=== PATIENT | male | born 1955 ===

== ENCOUNTER 2020-02-13 12:29 | Inpatient (IN) | payer BC ==
[2020-02-13] MEDS ORDERED: ASPIRIN 81 MG ONE (12:55)
[2020-02-13] MEDS ORDERED: IV FLUID CONTINUATION 1,000 ML IV ONE (13:15)
[2020-02-13] MEDS ORDERED: VERAPAMIL 2.5 MG/ML 2 ML AMP ONE (13:35)
[2020-02-13] MEDS: VERAPAMIL SYRINGE (5 MG/10 ML) INTRAARTER ONE ×3 (13:37→14:09)
[2020-02-13] MEDS ORDERED: BIVALIRUDIN BOLUS 250 MG/50 ML IV ONE (13:39)
[2020-02-13] MEDS ORDERED: BIVALIRUDIN 250 MG in SODIUM CHLORIDE 0.9% 50 ML IV ONE (13:40)
[2020-02-13] MEDS ORDERED: MIDAZOLAM 2 MG/2 ML VIAL IVP ONE (13:42)
[2020-02-13] MEDS ORDERED: CLOPIDOGREL 75 MG TAB ONE (13:45)
[2020-02-13] MEDS ORDERED: NITROGLYCERIN 1000MCG/10ML SYRINGE INTRACORON ONE ×2 (13:58→14:03)
[2020-02-13] MEDS ORDERED: MAG HYDROX/AL HYDROX/SIMETH 30 ML CUP PO PRN (14:10)
[2020-02-13] MEDS ORDERED: ZOLPIDEM 5 MG TAB PO PRN (14:10)
[2020-02-13] MEDS ORDERED: NITROGLYCERIN SL TABS 0.4 MG TAB SUBLINGUAL PRN (14:10)
[2020-02-13] MEDS ORDERED: ATROPINE SULFATE 0.1 MG/ML 10ML SYRINGE IV PRN (14:10)
[2020-02-13] MEDS ORDERED: RX INFO: IV CONTRAST WAS GIVEN 1 EACH MISC MISCELLANE PRN (14:10)
[2020-02-13] MEDS ORDERED: ASPIRIN 81 MG PO ONE (14:12)
[2020-02-13] MEDS ORDERED: CLOPIDOGREL 75 MG TAB PO ONE (14:12)
[2020-02-13] MEDS ORDERED: IOPAMIDOL-370 125ML BTL INJ ONE (14:12)
[2020-02-13] MEDS ORDERED: SODIUM CHLORIDE 0.9% 1,000 ML IV SCH (14:15)
--- NOTE | 2020-02-13 14:49 | PTCA ---
PERCUTANEOUSTRANS CORORONARY ANGIOGRAPHY DATE OF SERVICE: February 13, 2020. PERFORMING PHYSICIAN: Crescencio Gupta MD. PROCEDURE PERFORMED: Successful stenting of the distal right coronary artery using 3.0 x 15 mm and 3.0 x 15 mm Xience JOSE with an excellent angiographic result and reduction of stenosis from 99% to 0%. INDICATION: This is a 64-year-old gentleman with history of coronary artery disease and prior triple-vessel stenting who was admitted to [facility] with chest discomfort and ruled in for acute [id number] myocardial infarction. He underwent a heart catheterization over there and that revealed critical disease involving the distal right coronary artery. He was brought to undergo an intervention on the right coronary artery. APPROACH: Right radial artery. COMPLICATION: None. LEVEL OF SEDATION: Moderate with sedation length of 43 minutes. PROCEDURE DESCRIPTION: Please refer to diagnostic heart catheterization that was performed at [facility]. Anticoagulation was initiated using Angiomax. Subsequently, I did engage the right coronary artery using JR4 guide. I did wire it using a Whisper J wire. After that I did PTCA ballooning using 2.5 x 12 mm balloon and when I tried to deploy 3.0 x 15 mm Xience, the patient took a deep breath and the stent deployed proximal to the lesion where it is supposed to be deployed. I was able to deploy the stent at the right lesion using another 3.0 x 15 mm stent while the second stent was deployed under fluoroscopy guidance. After that, I post dilated to the 2 stents using 3.5 x 12 mm NC balloon. The final angiogram showed excellent angiographic results and the procedure was completed without any complication. POSTPROCEDURE MANAGEMENT: 1. Dual anti-platelet therapy. 2. Risk factor modifications. 3. Follow up with the patient. MMODL / IJN: [id number] /
[2020-02-13 17:40] LABS: Glucose,Whole Blood 183 mg/dL (75-99)
[2020-02-13] MEDS: ATORVASTATIN 80 MG TAB PO SCH (20:06)
[2020-02-13 20:43] LABS: Glucose,Whole Blood 329 mg/dL (75-99)
--- NOTE | 2020-02-13 21:57 | P.HPIM ---
History of Present Illness H&P Date: 02/13/20 Chief Complaint: Chest pain History of presenting complaint: This is a 64-year-old patient of Dr. goss. Known history of coronary artery disease with stent, hypertension and asthma. 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 Chelo alfaro and had been complaining of chest pressure. Patient has a strong [place] accent , not able to express himself clearly. Is having chest pressure off and on for 2 days. Some radiation to the left arm. Apparently some shortness of breath. Has not really related to exertion it seems. He was sent down to the ER. Patient ruled in for acute non-Q-wave myocardial infarction at [facility]. Underwent a cardiac terence terization. Found to have critical right coronary artery stenosis and he was transferred here. Successful angioplasty stenting was done by Dr. Gupta. Currently resting in bed. With no cardiac symptoms. Review of systems: GEN.: None EYES: None HEENT: None NECK: None RESPIRATORY: As above CARDIOVASCULAR: As above GASTROINTESTINAL: None GENITOURINARY: None MUSCULOSKELETAL: None LYMPHATICS: None HEMATOLOGICAL: None PSYCHIATRY: None NEUROLOGICAL: None Past medical history to include:: Coronary artery disease with stent, hypertension Social history: Patient makes headline is, lives with his family. Denies any smoking or alcohol. Physical examination: VITAL SIGNS: 98.4, 75, 16, 149/74, 98% room air GENERAL: BMI 26.1, sitting up, comfortable. EYES: Pupils equal. Conjunctiva normal. HEENT: External appearance of nose and ears normal, oral cavity grossly normal. NECK: JVD not raised; masses not palpable. HEART: First and second heart sounds are normal; no edema. LUNGS: Respiratory rate normal; clear to auscultation. ABDOMEN: Soft, nontender, liver spleen not palpable, no masses palpable. PSYCH: Alert and oriented x3; mood and affect normal. NEUROLOGICAL: Cranial nerves grossly intact; no facial asymmetry, power and sensation grossly intact. LYMPHATICS: No lymph nodes palpable in the axilla and neck INVESTIGATIONS, reviewed in the clinical context: Accu-Cheks 183, 329 Assessment: -Acute non-Q-wave myocardial infarction -Cardiac catheterization with intervention to the RCA -essential hypertension -Moderate persistent asthma -Hyperglycemia, check for diabetes mellitus type 2 Plan: Patient currently in aspirin, Lipitor, Plavix, Zestril. We'll follow Accu-Cheks and sliding scale insulin. Check a HbA1c. Check lipid profile in the morning. Care was discussed with the patient. Question answered. Past Medical History Past Medical History: Coronary Artery Disease (CAD), Diabetes Mellitus History of Any Multi-Drug Resistant Organisms: None Reported Past Surgical History: Heart Catheterization, Heart Catheterization With Stent Past Anesthesia/Blood Transfusion Reactions: No Reported Reaction Date of Last Stent Placement:: 02/13/2020 Past Psychological History: No Psychological Hx Reported Smoking Status: Never smoker Medications and Allergies Home Medications Medication Instructions Recorded Confirmed Type Albuterol Sulfate [Proair Hfa] 2 puff INHALATION RT-QID PRN 02/13/20 02/13/20 History Beclomethasone Dip 80 Mcg/Puff 2 puff INHALATION RT-BID 02/13/20 02/13/20 History [Qvar 80 mcg] Clopidogrel [Plavix] 75 mg PO DAILY 02/13/20 02/13/20 History Hydrochlorothiazide [Hydrodiuril] 25 mg PO BID 02/13/20 02/13/20 History Lisinopril [Zestril] 10 mg PO DAILY 02/13/20 02/13/20 History Allergies Allergy/AdvReac Type Severity Reaction Status Date / Time No Known Allergies Allergy Verified 02/13/20 16:58 Physical Exam Vitals: Vital Signs Temp Pulse Resp BP Pulse Ox 02/13/20 20:00 98.4 F 75 16 149/74 98 02/13/20 15:55 62 18 02/13/20 15:25 98.1 F 68 18 144/88 99 02/13/20 14:28 73 18 163/80 99 Intake and Output 02/13/20 02/13/20 02/13/20 06:59 14:59 22:59 Intake Total 201 Balance 201 Intake: IV 201 Other: Voiding Method Toilet Weight 71.271 kg Results Labs: Abnormal Lab Results - Last 24 Hours (Table) 02/13/20 02/13/20 Range/Units 17:13 20:41 POC Glucose (mg/dL) 183 H 329 H (75-99) mg/dL Thrombosis Risk Factor Assmnt - Choose All That Apply Each Factor Represents 1 point: Medical pt on bed rest Thrombosis Risk Factor Assessment Total Risk Factor Score: 1 Thrombosis Risk Factor Assessment Level: Low Risk
[2020-02-14 06:04] LABS: Glucose,Whole Blood 353 mg/dL (75-99)
[2020-02-14] MEDS: INSULIN ASPART (NovoLOG) 100 UNIT/ML VIAL SQ SCH ×4 (06:21→20:19)
[2020-02-14] MEDS ORDERED: LISINOPRIL 2.5 MG TAB PO SCH (09:00)
[2020-02-14] MEDS: CLOPIDOGREL 75 MG TAB PO SCH (09:33)
[2020-02-14] MEDS: ASPIRIN 325 MG TAB PO SCH (09:33)
[2020-02-14] MEDS ORDERED: LISINOPRIL 2.5 MG TAB PO STA (09:54)
[2020-02-14 10:21] LABS: African American GFR (CKD) >90 (>60 ml/min/1.73 sqM); Anion Gap 9 mmol/L; Blood Urea Nitrogen 17 mg/dL (9-20); Calcium 8.8 mg/dL (8.4-10.2); Carbon Dioxide 25 mmol/L (22-30); Chloride 99 mmol/L (98-107); Glucose 341 mg/dL (74-99); Non-African American GFR(CKD) >90 (>60 ml/min/1.73 sqM); Sodium 133 mmol/L (137-145)
[2020-02-14 12:02] LABS: Glucose,Whole Blood 332 mg/dL (75-99)
[2020-02-14] MEDS: INSULN ASP PRT/INSULIN ASPART 100 UNIT/ML 10 ML VIAL SQ SCH ×2 (12:37→17:31)
[2020-02-14] MEDS: METOPROLOL TARTRATE 25 MG TAB PO SCH ×2 (12:39→20:19)
--- NOTE | 2020-02-14 13:34 | P.PN ---
Subjective Progress Note Date: 02/14/20 This is a 64-year-old male who presented initially to [facility] with chest discomfort and was ruled in for acute non-ST elevated myocardial infarction. He underwent heart catheterization at [facility] that revealed critical disease involving the distal right coronary artery. Patient was then transferred to [facility] underwent successful stenting of the distal right coronary artery on February [address] Gupta. Patient has also been newly diagnosed with diabetes. Patient denies any chest pain, shortness of breath, lightheadedness or dizziness. Patient is very anxious to go home. He has been cleared by Dr. Gupta for discharge. Patient has been instructed to take his medications as instructed including aspirin and Plavix. Right wrist shows no bleeding hematoma. Blood pressure readings were elevated this morning for which lisinopril was increased followed by hydrochlorothiazide added. Metoprolol was also added. Patient is cleared from cardiology for discharge home. Physical examination: Gen: This is a 64-year-old male, ambulating in his room. He appears to be in no acute distress. VS: Afebrile, heart rate 99, blood pressure 154/106, pulse ox 99% on room air HEENT: Head is atraumatic, normocephalic. Pupils equal, round. Sclerae is ani cteric. NECK: Supple. No JVD. No lymphadenopathy. No thyromegaly. LUNGS: Clear to auscultation. No wheezes or rhonchi. No intercostal retractions. HEART: Regular rate and rhythm. No murmur. ABDOMEN: Soft. Bowel sounds are present. No masses. No tenderness. EXTREMITIES: No pedal edema. No calf tenderness. Right wrist with no hematoma, bleeding. NEUROLOGICAL: Patient is awake, alert and oriented x3. Cranial nerves 2 through 12 are grossly intact. Assessment: Acute non-ST elevated myocardial infarction Hypertension Diabetes mellitus type 2 Plan: Patient is cleared for discharge home today Continue aspirin 81 mg daily, atorvastatin 80 mg daily, Plavix 75 mg daily, Lopressor 25 mg twice daily Continue lisinopril hydrochlorothiazide Patient is cleared for discharge from cardiology Follow-up with Dr. Gupta in one week Nurse practitioner note has been reviewed, I agree with documented findings and plan of care. Patient was seen and examined. Objective - Vital Signs Vital signs: Vital Signs Temp 97.5 F L 02/14/20 08:00 Pulse 99 02/14/20 08:00 Resp 18 02/14/20 08:00 BP 154/106 02/14/20 08:00 Pulse Ox 99 02/14/20 08:00 Intake & Output 02/13/20 02/14/20 02/14/20 18:59 06:59 18:59 Intake Total 201 675 90 Balance 201 675 90 Weight 71.271 kg 71.7 kg Intake: IV 201 675 Sodium Chloride 0.9% 1, 675 000 ml @ 75 mls/hr IV . [id number] [facility] Rx#:[id number] Oral 90 Other: Voiding Method Toilet # Voids 3 - Labs CBC & Chem 7: 02/14/20 09:18 Labs: Abnormal Lab Results - Last 24 Hours (Table) 02/13/20 02/13/20 02/14/20 Range/Units 17:13 20:41 06:02 POC Glucose (mg/dL) 183 H 329 H 353 H (75-99) mg/dL
[2020-02-14 16:48] VITALS: RESP 16
[2020-02-14] MEDS: metFORMIN 500 MG TAB PO SCH (16:55)
[2020-02-14 17:06] LABS: Glucose,Whole Blood 135 mg/dL (75-99)
--- NOTE | 2020-02-14 18:39 | P.PN ---
Progress Note - Text Progress Note Date: 02/14/20 Chief Complaint: Chest pain History of presenting complaint: This is a 64-year-old patient of Dr. goss. Known history of coronary artery disease with stent, hypertension and asthma. Patient has gone to see his dulser Dr. Chelo alfaro and had been complaining of chest pressure. Patient has a strong [place] accent , not able to express himself clearly. Is having chest pressure off and on for 2 days. Some radiation to the left arm. Apparently some shortness of breath. Has not really related to exertion it seems. He was sent down to the ER. Patient ruled in for acute non-Q-wave myocardial infarction at [facility]. Underwent a cardiac catheterization. Found to have critical right coronary artery stenosis and he was transferred here. Successful angioplasty stenting was done by Dr. Gupta. Currently resting in bed. With no cardiac symptoms. Admitted with-acute non-Q-wave myocardial infarction. Status post right coronary artery intervention. Today-somewhat agitated. Doesn't was taken the hospital doesn't like here. Informed at length that his sugars were running high the blood pressures running high. Still insistent about going home. Patient is be started on insulin. Was to leave AMA. Review of systems: Was done for constitutional, cardiovascular, GI, pulmonary. relevant finding as above Active Medications Al Hydroxide/Mg Hydroxide (Maalox) 30 ml PO Q4HR PRN PRN Reason: Heartburn Aspirin (Aspirin) 325 mg PO DAILY [facility] Last Admin: 02/14/20 09:33 Dose: 325 mg Documented by: Atorvastatin Calcium (Lipitor) 80 mg PO HS [facility] Last Admin: 02/13/20 20:06 Dose: 80 mg Documented by: Atropine Sulfate (Atropine) 0.5 mg IV ONCE PRN PRN Reason: Symptomatic Bradycardia Clopidogrel Bisulfate (Plavix) 75 mg PO DAILY [facility] Last Admin: 02/14/20 09:33 Dose: 75 mg Documented by: Lisinopril/HCTZ (Zestoretic 10-12.5) 1 each PO BID [facility] Insulin Aspart (Novolog) 0 unit SQ ACHS [facility]; Protocol Last Admin: 02/14/20 17:32 Dose: Not Given Documented by: Insulin Aspart (Novolog Mix 70-30 Vial) 16 unit SQ AC-BID [facility] Last Admin: 05/16/20 17:31 Dose: 16 unit Documented by: Insulin Aspart (Novolog Mix 70-30 Vial) 8 unit SQ AC-LUNCH [facility] Last Admin: 02/14/20 12:37 Dose: 8 unit Documented by: Metformin HCl (Glucophage) 500 mg PO AC-BID [facility] Last Admin: 02/14/20 16:55 Dose: 500 mg Documented by: Metoprolol Tartrate (Lopressor) 25 mg PO BID [facility] Last Admin: 02/14/20 12:39 Dose: 25 mg Documented by: Miscellaneous Information (Rx Info: Iv Contrast Was Given) 1 each MISCELLANE DAILY PRN PRN Reason: Per Protocol Stop: 02/15/20 14:10 Nitroglycerin (Nitrostat) 0.4 mg SUBLINGUAL Q5M PRN PRN Reason: Chest Pain Zolpidem Tartrate (Ambien) 5 mg PO HS PRN PRN Reason: Insomnia Physical examination: VITAL SIGNS: 97.5, 73, 18, 167/98, 99% room air, GENERAL: Laying in bed, comfortable EYES: Pupils equal. Conjunctiva normal. HEENT: External appearance of nose and ears normal, oral cavity grossly normal. NECK: JVD not raised; masses not palpable. HEART: First and second heart sounds are normal; no edema. LUNGS: Respiratory rate normal; clear to auscultation. ABDOMEN: Soft, nontender, liver spleen not palpable, no masses palpable. PSYCH: Alert and oriented x3; mood and affect irritated INVESTIGATIONS, reviewed in the clinical context: Potassium 4 creatinine 0.86 Blood glucose 341, Accu-Chek 332, Previous testing Accu-Cheks 183, 329 Assessment: -Acute non-Q-wave myocardial infarction -Cardiac catheterization with intervention to the RCA -essential hypertension -Moderate persistent asthma -Diabetes mellitus type 2, uncontrolled with hyperglycemia-new diagnosis Plan: Spent a long time to do patient is still mostly AMA. I did his discharge paperwork. Late in the evening nurse informed me that patient had stated back. Patient was started this morning on NovoLog Mix 70/30 16 units twice a day with breakfast and supper and 8 units with lunch. Also started on Glucophage. Her blood pressure Zestoretic 10/12.5 one tablet twice a day was started. And also Lopressor was added 25 mg twice a day. Total time spent today was about 45 minutes with over 25 minutes of discussion
[2020-02-14 19:57] LABS: Hemoglobin A1C 15.5 % (4.0-6.0)
[2020-02-14 20:16] LABS: Glucose,Whole Blood 148 mg/dL (75-99)
[2020-02-14] MEDS: ATORVASTATIN 80 MG TAB PO SCH (20:19)
[2020-02-14] MEDS: LISINOPRIL-HCTZ 10-12.5 MG 1 EACH TAB PO SCH (20:19)
[2020-02-15] MEDS: metFORMIN 500 MG TAB PO SCH (07:11)
[2020-02-15] MEDS: ASPIRIN 325 MG TAB PO SCH (07:51)
[2020-02-15] MEDS: CLOPIDOGREL 75 MG TAB PO SCH (07:51)
[2020-02-15] MEDS: LISINOPRIL-HCTZ 10-12.5 MG 1 EACH TAB PO SCH (07:51)
[2020-02-15] MEDS: METOPROLOL TARTRATE 25 MG TAB PO SCH (07:51)
[2020-02-15] MEDS: INSULIN ASPART (NovoLOG) 100 UNIT/ML VIAL SQ SCH ×2 (07:53→12:26)
[2020-02-15] MEDS: INSULN ASP PRT/INSULIN ASPART 100 UNIT/ML 10 ML VIAL SQ SCH ×2 (07:53→12:27)
[2020-02-15] MEDS ORDERED: LISINOPRIL 5 MG TAB PO SCH (09:00)
--- NOTE | 2020-02-15 11:16 | P.PN ---
Subjective Progress Note Date: 02/15/20 This is a 64-year-old male who presented initially to [facility] with chest discomfort and was ruled in for acute non-ST elevated myocardial infarction. He underwent heart catheterization at [facility] that revealed critical disease involving the distal right coronary artery. Patient was then transferred to [facility] underwent successful stenting of the distal right coronary artery on February [address] Gupta. Patient has also been newly diagnosed with diabetes. Patient denies any chest pain, shortness of breath, lightheadedness or dizziness. Patient is very anxious to go home. He has been cleared by Dr. Gupta for discharge. Patient has been instructed to take his medications as instructed including aspirin and Plavix. Right wrist shows no bleeding hematoma. Blood pressure readings were elevated this morning for which lisinopril was increased followed by hydrochlorothiazide added. Metoprolol was also added. Patient is cleared from cardiology for discharge home. 02/14: Patient's discharge was held yesterday as he was started on insulin and diabetic education has taken place. Patient continues to deny chest pain or shortness of breath. Blood pressure is improved today. He is cleared for discharge from cardiology with planned follow-up with Dr. Gupta. Physical examination: Gen: This is a 64-year-old male, ambulating in his room. He appears to be in no acute distress. VS: Afebrile, heart rate 80, blood pressure 137/69, pulse ox 98% on room air HEENT: Head is atraumatic, normocephalic. Pupils equal, round. Sclerae is anicteric. NECK: Supple. No JVD. No lymphadenopathy. No thyromegaly. LUNGS: Clear to auscultation. No wheezes or rhonchi. No intercostal retractions. HEART: Regular rate and rhythm. No murmur. ABDOMEN: Soft. Bowel sounds are present. No masses. No tenderness. EXTREMITIES: No pedal edema. No calf tenderness. Right wrist with no hematoma, bleeding. NEUROLOGICAL: Patient is awake, alert and oriented x3. Cranial nerves 2 through 12 are grossly intact. Assessment: Acute non-ST elevated myocardial infarction Hypertension Diabetes mellitus type 2 Plan: Patient is cleared for discharge home today Continue aspirin 81 mg daily, atorvastatin 80 mg daily, Plavix 75 mg daily, Lopressor 25 mg twice daily Continue lisinopril hydrochlorothiazide Patient is cleared for discharge from cardiology Follow-up with Dr. Gupta in one week Nurse practitioner note has been reviewed, I agree with documented findings and plan of care. Patient was seen and examined. Objective - Vital Signs Vital signs: Vital Signs Temp 98.1 F 02/15/20 00:00 Pulse 80 02/15/20 04:00 Resp 16 02/15/20 04:00 BP 147/79 02/15/20 04:00 Pulse Ox 99 02/15/20 04:00 Intake & Output 02/14/20 02/15/20 02/15/20 18:59 06:59 18:59 Intake Total 570 Balance 570 Weight 70.5 kg Intake: Oral 570 Other: Voiding Method Toilet Toilet # Voids 1 2 # Bowel Movements 0 - Labs CBC & Chem 7: 02/14/20 09:18 Labs: Abnormal Lab Results - Last 24 Hours (Table) 02/14/20 02/14/20 02/14/20 Range/Units 09:18 09:18 11:37 Sodium 133 L (137-145) mmol/L Glucose 341 H (74-99) mg/dL POC Glucose (mg/dL) 332 H (75-99) mg/dL Hemoglobin A1c 15.5 H (4.0-6.0) % 02/14/20 02/14/20 Range/Units 16:40 20:12 Sodium (137-145) mmol/L Glucose (74-99) mg/dL POC Glucose (mg/dL) 135 H 148 H (75-99) mg/dL Hemoglobin A1c (4.0-6.0) %
[2020-02-15 12:15] LABS: Glucose,Whole Blood 216 mg/dL (75-99)
[2020-02-15 13:58] VITALS: BP 132/72; PULSE 76; TEMP 97.1
--- NOTE | 2020-02-15 17:58 | P.DS ---
Providers Date of admission: 02/13/20 12:57 Expected date of discharge: 02/15/20 Attending physician: Jimbo Naqvi Consults: 02/13/20 14:10 Consult Physician Routine Consulting Provider: [facility] Consult Reason/Comments: Post Interventional patient Do you want consulting provider notified?: Already Contacted Primary care physician: Crescencio Arbour-Hri Hospital Course: Chief Complaint: Chest pain History of presenting complaint: This is a 64-year-old patient of Dr. goss. Known history of coronary artery disease with stent, hypertension and asthma. 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 Patient has a strong [place] accent , not able to express himself clearly. Is having chest pressure off and on for 2 days. Some radiation to the left arm. Apparently some shortness of breath. Has not really related to exertion it seems. He was sent down to the ER. Patient ruled in for acute non-Q-wave myocardial infarction at [facility]. Underwent a cardiac catheterization. Found to have critical right coronary artery stenosis and he was transferred here. Successful angioplasty stenting was done by Dr. Gupta. Currently resting in bed. With no cardiac symptoms. Admitted with-acute non-Q-wave myocardial infarction. Status post right coronary artery intervention. She was running high. Newly diagnosed diabetic. Start on insulin. Today-. Blood pressure well controlled. No cardiac symptoms. Accu-Cheks are better. Care was discussed in detail with the patient. Questions were answered. Feeling well. Discussion and discharge planning more than 35 minutes Consultation: Dr. Gupta from cardiology Physical examination: VITAL SIGNS: 97.1, 76, 16, 132/72, 98% on room air GENERAL: Laying in bed, comfortable EYES: Pupils equal. Conjunctiva normal. HEENT: External appearance of nose and ears normal, oral cavity grossly normal. NECK: JVD not raised; masses not palpable. HEART: First and second heart sounds are normal; no edema. LUNGS: Respiratory rate normal; clear to auscultation. ABDOMEN: Soft, nontender, liver spleen not palpable, no masses palpable. PSYCH: Alert and oriented x3; mood and affect irritated INVESTIGATIONS, reviewed in the clinical context: Glycosylated hemoglobin 15.5 Potassium 4 creatinine 0.86 [id number], 216 Previous testing Accu-Cheks 183, 329 Assessment: -Acute non-Q-wave myocardial infarction -Cardiac catheterization with stent to the RCA -essential hypertension-with urgency -Moderate persistent asthma -Diabetes mellitus type 2, uncontrolled with hyperglycemia-new diagnosis Disposition: Home Patient Condition at Discharge: Stable Plan - Discharge Summary Discharge Rx Participant: Yes New Discharge Prescriptions: New Aspirin EC [Ecotrin Low Dose] 81 mg PO DAILY #30 tablet. Atorvastatin [Lipitor] 80 mg PO HS #30 tab Nitroglycerin Sl Tabs [Nitrostat] 0.4 mg SUBLINGUAL Q5M PRN #25 tab PRN Reason: Chest Pain metFORMIN HCL [Glucophage] 500 mg PO AC-BID #60 tab Metoprolol Tartrate [Lopressor] 25 mg PO BID #60 tab Insuln Asp Prt/Insulin Aspart [NovoLOG MIX 70-30 VIAL] 16 unit SQ AC-BID #1 vial Insuln Asp Prt/Insulin Aspart [NovoLOG MIX 70-30 VIAL] 8 unit SQ AC-LUNCH v ial Lisinopril-Hctz 10-12.5 mg [Zestoretic 10-12.5] 1 each PO BID #60 tab Continue Albuterol Sulfate [Proair Hfa] 2 puff INHALATION RT-QID PRN PRN Reason: Shortness Of Breath Clopidogrel [Plavix] 75 mg PO DAILY Beclomethasone Dip 80 Mcg/Puff [Qvar 80 mcg] 2 puff INHALATION RT-BID Discontinued Hydrochlorothiazide [Hydrodiuril] 25 mg PO BID Lisinopril [Zestril] 10 mg PO DAILY Discharge Medication List Albuterol Sulfate [Proair Hfa] 2 puff INHALATION RT-QID PRN 02/13/20 [History] Beclomethasone Dip 80 Mcg/Puff [Qvar 80 mcg] 2 puff INHALATION RT-BID 02/13/20 [History] Clopidogrel [Plavix] 75 mg PO DAILY 02/13/20 [History] Aspirin EC [Ecotrin Low Dose] 81 mg PO DAILY #30 tablet. 02/14/20 [Rx] Atorvastatin [Lipitor] 80 mg PO HS #30 tab 02/14/20 [Rx] Insuln Asp Prt/Insulin Aspart [NovoLOG MIX 70-30 VIAL] 8 unit SQ AC-LUNCH vial 02/14/20 [Rx] Insuln Asp Prt/Insulin Aspart [NovoLOG MIX 70-30 VIAL] 16 unit SQ AC-BID #1 vial 02/14/20 [Rx] Lisinopril-Hctz 10-12.5 mg [Zestoretic 10-12.5] 1 each PO BID #60 tab 02/14/20 [Rx] Metoprolol Tartrate [Lopressor] 25 mg PO BID #60 tab 02/14/20 [Rx] Nitroglycerin Sl Tabs [Nitrostat] 0.4 mg SUBLINGUAL Q5M PRN #25 tab 02/14/20 [Rx] metFORMIN HCL [Glucophage] 500 mg PO AC-BID #60 tab 02/14/20 [Rx] Follow up Appointment(s)/Referral(s): pcp, [Other] - 1-2 Days Crescencio Gupta MD [Primary Care Provider] - 1 Week (Please call office to schedule appointment ) Patient Instructions/Handouts: Insulin Aspart Protamine/Insulin Aspart (By injection), Heart Catheterization (DC) Activity/Diet/Wound Care/Special Instructions: Free glucometer given to patient. Patient can purchase testing strips and lancets at [employer] or [employer]. ac q as hs - pt to keep log Discharge Disposition: HOME SELF-CARE
== END 2020-02-15 14:12 | disposition home or self-care (01) | DRG 247 ==
LOC: 3SCARD 12:57
PROVIDERS: ADMIT Hospitalist; ATTEND Hospitalist
PROC: 027035Z Dilation of Coronary Artery, One Artery with Two Drug-eluting Intraluminal Devices, Percutaneous Approach (ICD-10-PCS; principal; 2020-02-13 13:00)
DX: I21.4 Non-ST elevation (NSTEMI) myocardial infarction (principal); I10 Essential (primary) hypertension; E11.65 Type 2 diabetes mellitus with hyperglycemia; I25.10 Atherosclerotic heart disease of native coronary artery without angina pectoris; J45.40 Moderate persistent asthma, uncomplicated; I25.2 Old myocardial infarction; Z79.02 Long term (current) use of antithrombotics/antiplatelets; Z79.899 Other long term (current) drug therapy; Z95.5 Presence of coronary angioplasty implant and graft
CPT/HCPCS: 80048; 83036; 93458